=== PATIENT | female | born 1995 | race Caucasian/White ===

== ENCOUNTER 2018-06-10 15:12 | Emergency (ER) | payer SELFPAY ==
[~2018-06-10] VITALS: Ht 157.5 cm; Wt 59.0 kg
[2018-06-10] MEDS ORDERED: ONDANSETRON ODT8 MG PO (20:12)
== END 2018-06-10 20:17 | disposition home or self-care (01) ==
LOC: ED 15:12
DX: O20.0 Threatened abortion (principal)
CPT/HCPCS: 76801; 76817; 80048; 81001; 84702; 85025; 86900; 86901; 99284-25